=== PATIENT | female | born 1945 | race American Indian/Alaskan Native ===

== ENCOUNTER 2017-09-09 13:06 | Outpatient (CLI) | payer MEDICARE ==
[2017-09-09 13:56] LABS: Blood Urea Nitrogen 11 mg/dL (7-17)
--- NOTE | 2017-09-09 15:01 | Cat Scan Report ---
CT HEAD WITH AND WITHOUT WITHOUT CONTRAST: HISTORY: Head injury, rule out blood clot. TECHNIQUE: Sequential CT images with and without contrast. FINDINGS: Images obtained show bilateral prominence of the sulci and ventricles. There are no abnormal intra- or extra-axial blood or fluid collections. There are no focal masses or evidence of mass effect. The roman white matter differentiation appears within normal limits. Regions of periventricular decreased attenuation are consistent with microangiopathic ischemic disease. The posterior fossa structures including the fourth ventricle, cerebellum, and brainstem appear normal. No abnormal enhancement following IV contrast is detected. IMPRESSION: Evidence of atrophy and microangiopathic ischemic disease. No acute intracranial process noted.
== END 2017-09-09 13:07 | disposition home or self-care (01) ==
LOC: CT 13:06
DX: S09.90XA Unspecified injury of head, initial encounter (principal); X58.XXXA Exposure to other specified factors, initial encounter; Y93.89 Activity, other specified; Y92.89 Other specified places as the place of occurrence of the external cause; Y99.8 Other external cause status
CPT/HCPCS: 36415; 70470; 82565; 84520; Q9967